=== PATIENT | female | born 1990 | race Asian ===

== ENCOUNTER 2025-02-17 15:04 | Outpatient (AMB) | payer OTHER, SELFPAY ==
--- NOTE | 2025-02-17 14:45 | MHC.PC.OV ---
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 How often do you have six or more drinks on one occasion?: Never Total Score: 0 KEITH-7 AMB Questionnaire KEITH-7 Date KEITH - 7 assessed: 02/17/25 Source: Developed by Drs. Morro Parson, Kim Pringle, Rancho Coleman and colleagues, with an educational radha from [email or web address] Coding
--- NOTE | 2025-02-17 15:04 | A.OFFPC_ITS ---
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 Accompanied by: Spouse Allergies No Known Allergies Allergy (Verified 02/17/25 15:10) Medication List - Last Reconciled 02/17/25 by Too Rosen MD No Known Home Meds Tobacco use date assessed: 02/17/25 Dental Screening Dental Screen Date: 02/17/25 Did you have a dental visit in the last 12 months?: No Did you have a dental problem in the last 6 months where you did not have access to dental care?: Yes Was dental information given to patient?: Yes HPI HPI Comments History of Present Illness Details The patient is a 34 year old individual presenting for a general health check-up to [facility]. The patient is from [facility] and moved to the [facility] in September, and this is the first visit to a doctor in the country. The patient has no known underlying medical conditions or history of surgeries. The patient has a family history of diabetes in both parents but no family history of heart disease or cancer. The patient denies any history of smoking, alcohol, or illicit drug use and reports no known drug allergies. Medical History: - No known past medical history. Surgical History: - No history of prior surgeries. Family History: - Diabetes mellitus: Mother and father. - Denies family history of heart disease or cancer. Social History - Country of Origin: Reports immigrating from [facility] to the [facility] in September. - Substance Use: Denies use of tobacco, alcohol, marijuana, heroin, or cocaine. Health Maintenance - Laboratory Screening: Ordered comprehe nsive blood work including cholesterol, glucose, hepatitis panel, HIV, and syphilis. - Cancer Screening: Referral placed for a Pap smear with an PASSENGER CAR CLEANING SUPERVISOR for cervical cancer screening, which is typically performed every 3-5 years. - Follow-up: Recommended to return for a nnual visits for continued preventative care. ON LICENSE OF [facility] Medical History (Updated 02/17/25 @ 15:27 by Too Rosen MD) Annual physical exam Social History Housing: Apartment Patient Tobacco Use Status: Never used Tobacco e-Cigarette/Vaping Use: Never Used service: No Current occupational status: unemployed Questionnaire PHQ-9 Over the last 2 weeks, how often have you been bothered by any of the following problems? 1. Little interest or pleasure in doing things: not at all 2. Feeling down, depressed, or hopeless: more than half the days 3. Trouble falling or staying asleep, or sleeping too much: several days 4. Feeling tired or having little energy: several days 5. Poor appetite or overeating: not at all 6. Feeling bad about yourself - or that you are a failure or have let yourself or your family down: not at all 7. Trouble concentrating on things, such as reading the newspaper or watching television: not at all 8. Moving or speaking so slowly that other people could have noticed. Or the opposite - being so fidgety or restless that you have been moving around a lot more than usual: not at all 9. Thoughts that you would be better off or of hurting yourself in some way: not at all Total score: 4 Depression Screening Interpretation: Negative Depression Screening Done: Yes [id number] - PHQ-9 Billing: Yes Source: Developed by Drs. Morro Parson, Kim Pringle, Rancho Coleman and colleagues, with an educational radha from [employer]: turn off the lights. Thrive Questionnaire Date Thrive assessed: 02/17/25 I am a: Patient What is your living situation today?: I have a steady place to live Within the past 12 months, did the food you bought not last and you didn't have the money to get more?: Never true Within the past 12 months, did you worry whether your food would run out before you got money to buy more?: Never true Do you have trouble paying for medicines?: No Do you have trouble getting transportation to medical appointments?: No Do you have trouble paying your heating and electricity bill?: No Do you have trouble taking care of your child, family member or friend?: No Do you have trouble with day-to-day activities such as bathing, preparing meals, shopping, managing finances, etc.?: No Are you currently unemployed and looking for a job?: No Are you interested in more education?: No THRIVE Score: 0 AUDIT C Alcohol Use Questionnaire (AUDIT-C) 1. How often do you have a drink containing alcohol?: Never 3. How often do you have six or more drinks on one occasion?: Never Total Score: 0 Score Reviewed/Action Taken: Yes KEITH-7 AMB Questionnaire KEITH-7 Date KEITH - 7 assessed: 02/17/25 Feeling nervous, anxious, or on edge: 0 = Not at all Not being able to stop or control worryin = Several days Worrying too much about different things: 2 = More than half the days Trouble relaxin = Not at all Being so restless that it is hard to sit still: 0 = Not at all Becoming easily annoyed or irritable: 0 = Not at all Feeling afraid as if something awful might happen: 0 = Not at all Total KEITH-7 score (0-4 normal; 5-9 mild; 10-14 moderate; 15-21 severe): 3 Source: Developed by Drs. Morro Parson, Kim Pringle, Rancho Coleman and colleagues, with an educational radha from [employer]: turn off the lights. KEITH-7 Assessment Billing KEITH-7 Assessment Tool: KEITH-7 Assessment 02159 Review of Systems Narrative Review of Systems - Constitutional: Reports being overall healthy. - Cardiovascular: Denies chest pain. - Neurological: Denies headaches or vision changes. - Gastrointestinal: Denies nausea or vomiting. Reports normal urination and defecation. All systems reviewed & are unremarkable except as reviewed in HPI and above Physical exam (Primary Care) Vital Signs: Last Vital Signs Temp 97.8 F 02/17/25 15:08 Pulse 99 02/17/25 15:08 Resp 16 02/17/25 15:08 BP 90/58 L 02/17/25 15:08 Pulse Ox 100 02/17/25 15:08 Oxygen Delivery Method Room Air 02/17/25 15:08 BMI result Body Mass Index 24.6 Tobacco/Smoking Status: Tobacco use Status Tobacco use date assessed 02/17/25 02/17/25 15:08 Patient Tobacco Use Status Never used Tobacco 02/17/25 15:13 e-Cigarette/Vaping Use Never Used 02/17/25 15:13 PHQ-9: PHQ-9 Score PHQ-9: Total score 4 02/17/25 15:23 Depression Screening Interpretation: Negative Thrive Assessment: Date of Thrive Assessment Date Thrive assessed 02/17/25 02/17/25 15:20 Narrative Physical Exam General: Alert and oriented, Well nourished, No acute distress. Eye: Pupils are equal, round and reactive to light, Intact accommodation, Extraocular movements are intact, Normal conjunctiva, Vision unchanged. HENT: Normocephalic, Atraumatic, Tympanic membranes are clear, Normal hearing, Oral mucosa is moist, No pharyngeal erythema, Ear canals patent. Respiratory: Lungs CTA bilaterally, No wheeze, Respirations are non-labored. Cardiovascular: Regular rate, Regular rhythm, S1 auscultated, S2 auscultated, No murmur, Good pulses equal in all extremities, Normal peripheral perfusion, No edema. Gastrointestinal: Soft, Non-tender, Non-distended, Normal bowel sounds, No o rganomegaly. Musculoskeletal: Normal range of motion, Normal strength, No tenderness, No swelling, No deformity, Normal gait. Integumentary: Warm, Dry, [place], Intact. Neurologic: Alert, Oriented, Normal sensory, Normal motor function, No focal defects, Cranial Nerves II-XII are grossly intact, Normal deep tendon reflexes. Psychiatric: Cooperative, Appropriate mood & affect, Normal judgment. Coding Level of Care Code New Pt Prev Care 18-39yr(72001 Diagnoses Annual physical exam Z00.00 Additional Codes PHQ-9 - 42566 - PHQ-9 Billing: Yes ([id number]) KEITH-7 Assessment Billing - KEITH-7 Assessment Tool: KEITH-7 Assessment 67506 ([id number]) Assessment & Plan Assessment & Plan (1) Annual physical exam: Comment: The patient is a 34-year-old individual presenting to [facility]. The patient appears healthy with normal vital signs and a non-focal physical exam. The plan is to perform preventative health maintenance. This includes ordering comprehensive baseline blood work to screen for diabetes, lipid disorders, hepatitis, HIV, and syphilis. A referral to gynecology will be placed for age- appropriate cervical cancer screening with a Pap smear. The patient will follow up annually for routine check-ups. Code(s): Z00.00 - Encounter for general adult medical examination without abnormal find ings Category: Medical Plan: - Plan to order comprehensive blood work, including screening for cholesterol, glucose, hepatitis, HIV, and syphilis. - Will contact the patient with any abnormal results to discuss treatment if required. - Recommended annual follow-up visits for continued preventative care. - The patient is due for age-appropriate cervical cancer screening. (A referral will be placed to an PASSENGER CAR CLEANING SUPERVISOR for a Pap smear.) Health Maintenance: - Laboratory Screening: Ordered comprehensive blood work including cholesterol, glucose, hepatitis panel, HIV, and syphilis. - Cancer Screening: Referral placed for a Pap smear with an PASSENGER CAR CLEANING SUPERVISOR for cervical cancer screening, which is typically performed every 3-5 years. - Follow-up: Recommended to return for annual visits for continued preventative care. Patient was informed and verbally consented to the use of an ambient scribe for clinic note documentation during this visit. Vital signs reviewed. Comprehensive history, review of systems, and physical exam completed. Medications, allergies, and problem list reviewed and updated. Counseling provided on nutrition, regular exercise, sleep hygiene, and moderation of alcohol use. Discussed age-appropriate screenings (mammogram, colonoscopy, Pap, bone density) and immunizations (flu, COVID, shingles, Tdap). Screened for depression, fall risk, and home safety; no current concerns. Discussed stress management, dental and vision care, and importance of ongoing preventive follow-up. Routine labs ordered for metabolic and lipid screening. Patient educated on healthy lifestyle and agrees with the plan. Plan I discussed the importance of preventative medicine with the patient. I explained the plan to order a full panel of blood work to screen for various conditions, including diabetes, high cholesterol, hepatitis, HIV, and syphilis. I informed the patient that we will contact them if any results are abnormal to discuss potential treatment. I also explained that, based on age, the patient is due for a Pap smear for cervical cancer screening, and I will be placing a referral to a house painter helper for this. I reassured the patient that they appear healthy and recommended a follow-up visit once a year. Orders: Orders Complete Blood Count Auto Diff Today Z00.00 - Encounter for general adult medical examination without abnormal findings Comprehensive Met. Panel Today Z00.00 - Encounter for general adult medical examination without abnormal findings HIV Ab/Ag Today Z00.00 - Encounter for general adult medical examination without abnormal findings Lipid Panel Today Z00.00 - Encounter for general adult medical examination without abnormal findings Microalbumin, Random (w Creat) Today Z00.00 - Encounter for general adult medical examination without abnormal findings Syphilis Screen Today Z00.00 - Encounter for general adult medical examination without abnormal findings Vitamin D 25-OH Total Today Z00.00 - Encounter for general adult medical examination without abnormal findings Hemoglobin A1c Today Z00.00 - Encounter for general adult medical examination without abnormal findings Hepatitis A,B,C Profile Today Z00.00 - Encounter for general adult medical examination without abnormal findings TSH reflex Free T4 Today Z00.00 - Encounter for general adult medical examination without abnormal findings Referrals PASSENGER CAR CLEANING SUPERVISOR Referral Z12.4 - Encounter for screening for malignant neoplasm of cervix Patient Instructions: - Please go to the lab to have your blood drawn for the ordered tests. - We will call you if any of your lab results are abnormal to discuss the next steps. - We will send a referral to a house painter helper for a Pap smear, and their office will contact you to schedule an appointment. - You should plan to come back to the clinic for a check-up once a year.
[2025-02-17 15:08] VITALS: BP 90/58; PULSE 99; RESP 16; TEMP 36.6; O2SAT 100; BMI 24.6
== END 2025-02-17 15:26 | disposition home or self-care (01) ==
LOC: HO.HMCHD 15:04
PROVIDERS: PCP Student in an Organized Health Care Education/Training Program; Visit Provider Student in an Organized Health Care Education/Training Program
DX: Z00.00 Encounter for general adult medical examination without abnormal findings (principal)

== ENCOUNTER → 2025-02-17 15:04 | Outpatient (BNVA) | payer OTHER, SELFPAY | PROVIDERS: PCP Student in an Organized Health Care Education/Training Program; Visit Provider Student in an Organized Health Care Education/Training Program | DX: Z00.00 Encounter for general adult medical examination without abnormal findings (principal); Z13.30 Encounter for screening examination for mental health and behavioral disorders, unspecified | CPT/HCPCS: 96127; 99385 ==

== ENCOUNTER 2025-03-05 16:38 | Outpatient (REF) | payer OTHER, SELFPAY ==
[2025-03-05 16:55] LABS: MANUAL DIFF FLAG NO
[2025-03-05 17:17] LABS: Hematocrit 37.4 % (37.0-47.0); Hemoglobin 12.2 g/dl (12.0-16.0); Imm Gran Abs Auto 0.03 X10*3/uL (0.00-0.03); Imm Gran Pct Auto 0.2 % (0.0-0.4); Lymphocytes Absolute Auto 3.0 X10*3/uL (1.2-4.9); Mean Corpuscular HGB Conc 32.6 g/dl (31.0-35.0); Mean Corpuscular Hemoglobin 26.2 pg (27.0-33.0); Mean Corpuscular Volume 80.4 fL (80.0-98.0); NRBC Abs Auto 0.000 X10*3/uL (0.0-0.012); NRBC Pct Auto 0.0 /100WBC (0.0-0.2); Platelet Count 334 X10*3/uL (160-400); Red Blood Count 4.65 X10*6/uL (4.20-5.50); White Blood Count 12.0 X10*3/uL (4.8-10.8)
[2025-03-05 17:53] LABS: Microalbum/Creatinine Ratio Ur 5.6 ug/mg cr (<30)
[2025-03-05 18:02] LABS: Alanine Aminotransferase 30 U/L (0-31); Albumin Level 4.4 g/dL (3.5-5.0); Alkaline Phosphatase 81 U/L (39-117); Anion Gap 9 (12-20); Aspartate Amino Transferase 20 U/L (5-31); Blood Urea Nitrogen 11 mg/dL (9-16); Calcium 8.3 mg/dL (8.4-10.2); Carbon Dioxide 27 mmol/L (22-29); Chloride 106 mmol/L (96-108); Cholesterol 131 mg/dL (<200); Estimated Glomerular Filt Rate > 60; HDL Cholesterol 52 mg/dL (>40); Potassium 3.9 mmol/L (3.3-5.1); Sodium 138 mmol/L (135-145); Total Protein 7.5 g/dL (6.5-8.0); Triglycerides 87 mg/dL (<150)
[2025-03-06 04:22] LABS: HBS Num1 0.00 mIU/mL (0-7.99); HBc Num1 0.11 S/CO (0.00-0.79); HIV Num 1 0.12 S/CO (0.00-0.99); Hepatitis A Antibody IgM 0.23 Index (0-0.79); ~HepC Num1 0.14 S/CO (0.00-0.79); ~Hepatitis A Antibody IgM Nonreactive (Nonreactive); ~Hepatitis B Surface Antibody NONREACTIVE (Nonreactive); ~Hepatitis C Antibody Nonreactive (Nonreactive)
[2025-03-06 05:07] LABS: Syphilis Screen Nonreactive (Nonreactive)
[2025-03-06 13:18] LABS: HBsAGNum1 0.28 S/CO (0.00-0.99); Hepatitis B Surface Antigen Negative (Negative)
== END 2025-03-05 16:39 | disposition home or self-care (01) ==
LOC: HO.LAB 16:38
PROVIDERS: PCP Student in an Organized Health Care Education/Training Program; Visit Provider Student in an Organized Health Care Education/Training Program
DX: Z00.00 Encounter for general adult medical examination without abnormal findings (principal); Z01.84 Encounter for antibody response examination
CPT/HCPCS: 36415; 80053; 80061; 82043; 82306; 82570; 83036; 84443; 85025; 86704; 86706; 86709; 86780; 86803; 87340; 87389